=== PATIENT | male | born 1975 | race Two or more races ===

== ENCOUNTER 2018-11-15 13:13 | Emergency (ER) | payer MEDICAID ==
[~2018-11-15] VITALS: Ht 170.2 cm; Wt 59.9 kg
[2018-11-15 13:39] VITALS: BP 140/96
[2018-11-15] MEDS ORDERED: MORPHINE SULFATE INJ 2 MG/ML DISP.SYRIN IV ONE (14:30)
[2018-11-15] MEDS ORDERED: IV NS 0.9% 1,000 ML BAG IV ONE (14:30)
[2018-11-15] MEDS ORDERED: ONDANSETRON HCL/PF 4 MG/2 ML VIAL IVP ONE (14:30)
[2018-11-15 15:32] LABS: MONOTEST NEGATIVE (NEGATIVE)
== END 2018-11-15 15:45 | disposition home or self-care (01) ==
LOC: ER 13:13
DX: Z20.828 Contact with and (suspected) exposure to other viral communicable diseases (principal)
CPT/HCPCS: 36415; 86308-TC